=== PATIENT | male | born 1975 | race African-American/Black ===

== ENCOUNTER 2016-10-12 00:18 | Emergency (ER) | payer SELFPAY ==
[2016-10-12] MEDS ORDERED: Sodium Chloride 0.9% 1,000 ML IV ONE (00:41)
[2016-10-12] MEDS ORDERED: Sodium Chloride 0.9% 10 ML Syringe FLUSH PRN (00:41)
[2016-10-12] MEDS ORDERED: Sodium Chloride 0.9% 2.5 ML Syringe FLUSH PRN (00:41)
[2016-10-12] MEDS ORDERED: Ketorolac 30 MG/ML SDV IVPUSH ONE (00:42)
--- NOTE | 2016-10-12 00:50 | EDM.PDOC ---
ED HPI RENAL/ - General Chief Complaint: Flank Pain Stated Complaint: AMBULANCE Time Seen by Provider: 10/12/16 00:23 Source of Information: Reports: Patient History Limitations: Reports: No limitations - History of Present Illness INITIAL COMMENTS - FREE TEXT/NARRATIVE: HISTORY AND PHYSICAL: History of present illness: [41-year-old male with no prior history of kidney stones complaining of left flank pain today. Patient reports normal bowel and bladder habits. He denies abdominal pain. No fevers chills sweats or shaking chills. Patient denies cough or chest pain. He states the pain is intermittent and crampy in nature] Review of systems: As per history of present illness and below otherwise all systems reviewed and negative. Past medical history: As per history of present illness and as reviewed below otherwise noncontributory. Surgical history: As per history of present illness and as reviewed below otherwise noncontributory. Social history: No reported history of drug or alcohol abuse. Family history: As per history of present illness and as reviewed below otherwise noncontributory. Physical exam: HEENT: Atraumatic, normocephalic, pupils reactive, negative for conjunctival pallor or scleral icterus, mucous membranes moist, throat clear, neck supple, nontender, trachea midline. Lungs: Clear to auscultation, breath sounds equal bilaterally, chest nontender. Heart: S1S2, regular, negative for clicks, rubs, or JVD. Abdomen: Soft, nondistended, nontender. Negative for masses or hepatosplenomegaly. Negative for costovertebral tenderness. Pelvis: Stable nontender. Genitourinary: Deferred. Rectal: Deferred. Extremities: Atraumatic, negative for cords or calf pain. Neurovascular unremarkable. Neuro: Awake, alert, oriented. Cranial nerves II through XII unremarkable. Cerebellum unremarkable. Motor and sensory unremarkable throughout. Exam nonfocal. Diagnostics: [] Therapeutics: [] Impression: [] Plan: [A well-appearing patient complaining of left flank pain. Full workup negative except CT comments of possible infiltrate in the inferior left lung and patient' s white count is elevated at 14. X-ray done and was completely unremarkable for visible left lower lobe infiltrate however possibility of retrocardiac process exists and on discussion prior to discharge patient states he does have a cough over the last few days. Given results and white count discussed with patient will treat with Zithromax. No further workup or treatment indicated as patient is well-appearing with a benign abdomen and pelvis. He agrees with outpatient followup and strict return precautions given Definitive disposition and diagnosis as appropriate pending reevaluation and review of above. - Related Data Allergies/ADRs: Allergies Allergy/AdvReac Type Severity Reaction Status Date / Time No Known Allergies Allergy Verified 10/12/16 00:32 Home Meds: Home Meds Azithromycin [Zithromax] 250 mg PO DAILY #6 tablet 10/12/16 [Rx] Past Medical History HEENT History: Reports: None Cardiovascular History: Reports: None Respiratory History: Reports: None Gastrointestinal History: Reports: None Genitourinary History: Reports: None Musculoskeletal History: Reports: None Neurological History: Reports: None Psychiatric History: Reports: None Endocrine/Metabolic History: Reports: None Hematologic History: Reports: None Immunologic History: Reports: None Oncologic (Cancer) History: Reports: None Dermatologic History: Reports: None - Infectious Disease History Infectious Disease History: Reports: None - Past Surgical History Head Surgeries/Procedures: Reports: None Cardiovascular Surgical History: Reports: None Respiratory Surgical History: Reports: None GI Surgical History: Reports: None Male Surgical History: Reports: None Endocrine Surgical History: Reports: None Neurological Surgical History: Reports: None Musculoskeletal Surgical History: Reports: None Oncologic Surgical History: Reports: None Dermatological Surgical History: Reports: None Social & Family History - Family History Family Medical History: Noncontributory - Tobacco Use Smoking Status *Q: Current Some Day Smoker Years of Tobacco use: 2 Packs/Tins Daily: 0.5 - Caffeine Use Caffeine Use: Reports: Tea - Recreational Drug Use Recreational Drug Use: No ED ROS GENERAL - Review of Systems Review Of Systems: See Below (History of present illness) ED EXAM, RENAL/ - Physical Exam Exam: See Below (History of present illness) Course - Vital Signs Last Recorded V/S: Last Vital Signs Temp 37.2 C 10/12/16 03:00 Pulse 71 10/12/16 03:00 Resp 18 10/12/16 03:00 BP 128/79 10/12/16 03:00 Pulse Ox 99 10/12/16 03:00 - Orders/Labs/Meds Orders: Active Orders 24 hr Category Date Time Status Abdomen Pelvis w wo Cont [CT] Stat Exams 10/12/16 00:41 Taken Chest 1V Frontal [CR] Stat Exams 10/12/16 02:46 Taken Peripheral IV Insertion Adult [OM.PC] Stat Oth 10/12/16 00:41 Ordered Labs: Laboratory Tests 10/12/16 10/12/16 10/12/16 Range/Units 00:25 00:25 00:25 WBC 14.13 H (4.0-11.0) K/uL RBC 4.16 L (4.50-5.90) M/uL Hgb 13.4 (13.0-17.0) g/dL Hct 39.5 (38.0-50.0) % MCV 95.0 (80.0-98.0) fL MCH 32.2 H (27.0-32.0) pg MCHC 33.9 (31.0-37.0) g/dL RDW Std Deviation 45.6 (28.0-62.0) fl RDW Coeff of Ta 13 (11.0-15.0) % Plt Count 213 (150-400) K/uL MPV 9.70 (7.40-12.00) fL Neut % (Auto) 80.0 (48.0-80.0) % Lymph % (Auto) 9.1 L (16.0-40.0) % [place] % (Auto) 10.3 (0.0-15.0) % Eos % (Auto) 0.5 (0.0-7.0) % Baso % (Auto) 0.1 (0.0-1.5) % Neut # (Auto) 11.3 H (1.4-5.7) K/uL Lymph # (Auto) 1.3 (0.6-2.4) K/uL [place] # (Auto) 1.5 H (0.0-0.8) K/uL Eos # (Auto) 0.1 (0.0-0.7) K/uL Baso # (Auto) 0.0 (0.0-0.1) K/uL Nucleated RBC % 0.0 /100WBC Nucleated RBCs # 0 K/uL Sodium 135 L (136-146) mmol/L Potassium 4.3 (3.5-5.1) mmol/L Chloride 98 (98-110) mmol/L Carbon Dioxide 26 (21-31) mmol/L BUN 9 (6.0-23.0) mg/dL Creatinine 0.9 (0.6-1.5) mg/dL Est Cr Clr Drug Dosing 118.82 mL/min Estimated GFR (MDRD) > 60.0 ml/min Glucose 117 H (60-110) mg/dL Calcium 9.4 (8.8-10.8) mg/dL Total Bilirubin 0.9 (0.1-1.5) mg/dL AST 15 (5-40) IU/L ALT 17 (8-54) IU/L Alkaline Phosphatase 44 (40-150) Total Protein 8.4 H (6.0-8.0) g/dL Albumin 4.2 (3.5-5.0) g/dL Globulin 4.2 H (2.0-3.5) g/dL Albumin/Globulin Ratio 1.0 L (1.3-2.8) Lipase 41 (7-80) U/L Urine Color YELLOW Urine Appearance CLEAR Urine pH 6.0 (5.0-8.0) Ur Specific [place] 1.020 (1.001-1.035) Urine Protein NEGATIVE (NEGATIVE) mg/dL Urine Glucose (UA) NEGATIVE (NEGATIVE) mg/dL Urine Ketones NEGATIVE (NEGATIVE) mg/dL Urine Occult Blood NEGATIVE (NEGATIVE) Urine Nitrite NEGATIVE (NEGATIVE) Urine Bilirubin NEGATIVE (NEGATIVE) Urine Urobilinogen 1.0 (<2.0) EU/dL Ur Leukocyte Esterase NEGATIVE (NEGATIVE) Urine RBC 0-2 (0-2/HPF) Urine WBC 0-2 (0-5/HPF) Ur Epithelial Cells OCCASIONAL (NONE-FEW) Urine Bacteria RARE (NEGATIVE) Urine Mucus LIGHT (NONE-MOD) Meds: Medications Discontinued Medications Generic Name Dose Route Start Last Admin Trade Name Freq PRN Reason Stop Dose Admin Azithromycin 500 mg 10/12/16 03:18 10/12/16 03:27 Zithromax PO 10/12/16 03:19 500 mg ONETIME ONE Administration Sodium Chloride 1,000 mls @ 999 mls/hr 10/12/16 00:41 10/12/16 00:49 Normal Saline IV 10/12/16 01:41 999 mls/hr .Bolus ONE Administration Iopamidol 100 ml 10/12/16 01:37 10/12/16 01:39 Isovue-370 (76%) IVPUSH 10/12/16 01:38 100 ml ONETIME STA Administration Ketorolac Tromethamine 30 mg 10/12/16 00:42 10/12/16 00:49 Toradol IVPUSH 10/12/16 00:43 30 mg ONETIME ONE Administration Sodium Chloride 10 ml 10/12/16 00:41 Saline Flush FLUSH ASDIRECTED PRN Keep Vein Open Sodium Chloride 2.5 ml 10/12/16 00:41 Saline Flush FLUSH ASDIRECTED PRN Keep Vein Open Departure - Departure Time of Disposition: 03:15 Disposition: Home, Self-Care 01 Condition: good Clinical Impression: Left flank pain, Left lower lobe pneumonia Prescriptions: Azithromycin [Zithromax] 250 mg PO DAILY #6 tablet Instructions: Community-Acquired Pneumonia, Adult, [id number] Referrals: PCP,None [Primary Care Provider] - Forms: ED Department Discharge Additional Instructions: It appears severe left flank pain may have been caused by a left lower lobe pneumonia. This is not visible on her chest x-ray but it was visible to the radiologist on your CAT scan of the abdomen and pelvis. This means it is in the very lowest part of the lung. You have an elevated white blood cell count. This is often associated with infections in this case is likely a result of your pneumonia Finish antibiotics as prescribed and followup with your Dr. in one to 2 days. Return immediately for new severe or worsening symptoms. - My Orders Last 24 Hours: My Active Orders 10/12/16 00:41 Abdomen Pelvis w wo Cont [CT] Stat Peripheral IV Insertion Adult [OM.PC] Stat 10/12/16 02:46 Chest 1V Frontal [CR] Stat - Assessment/Plan Last 24 Hours: My Active Orders 10/12/16 00:41 Abdomen Pelvis w wo Cont [CT] Stat Peripheral IV Insertion Adult [OM.PC] Stat 10/12/16 02:46 Chest 1V Frontal [CR] Stat
[2016-10-12 01:00] LABS: CHLORIDE,CL 98 mmol/L (98-110); SODIUM,NA 135 mmol/L (136-146)
[2016-10-12] MEDS ORDERED: Iopamidol 755 Mg/ML 100 ML Bottle IVPUSH STA (01:37)
[2016-10-12] MEDS ORDERED: Azithromycin 250 MG Tab PO ONE (03:18)
[2016-10-12 03:36] VITALS: BP 128/79
--- NOTE | 2016-10-14 10:23 | CT ---
EXAM DATE: 10/12/16 PATIENT'S AGE: 41 Patient: MATTHEW KUMAR Facility: [place], [place] Site . Site : 1975 Study: CT Abdomen/Pelvis [id number]/8/2017 1:39:53 AM Ordering Physician: Len Rios Final Report: INDICATION: Left upper quadrant and flank pain TECHNIQUE: CT abdomen and pelvis without contrast. COMPARISON: None FINDINGS: Lower chest: Patchy airspace disease in the left lower lobe. Small left pleural effusion. Liver: Unremarkable. Spleen: Unremarkable. Pancreas: Unremarkable. Gallbladder and bile ducts: Unremarkable. Adrenal glands: Unremarkable. Kidneys: Unremarkable. No kidney or ureteral stones and no hydronephrosis. GI tract: Unremarkable. Vascular structures: Unremarkable. Lymph nodes: Unremarkable. Miscellaneous: Unremarkable. No free air or significant free fluid. Pelvic Organs: Unremarkable. Bones: Unremarkable for age. IMPRESSION: 1. No acute intra-abdominal process identified. No renal stones or hydronephrosis. 2. Airspace disease in left lower lobe likely represents pneumonia. Small left pleural effusion. Dictated by Pao Dickey MD @ Oct 12 2016 1:41AM (Electronic Signature) Report Signed by Proxy and Original Signed Document filed in the Medical Record. [facility]
--- NOTE | 2016-10-14 10:24 | CR ---
EXAM DATE: 10/12/16 PATIENT'S AGE: 41 Patient: MATTHEW KUMAR Facility: [place], [place] Site . Site : 1975 Study: XRay Chest [id number]/8/[id number] 3:00:33 AM Ordering Physician: Len Rios Final Report: INDICATION: Pain and shortness of breath TECHNIQUE: Chest one view COMPARISON: None FINDINGS: Cardiovascular and mediastinum: Heart size and vasculature are normal in caliber and appearance. Mediastinum is within normal limits. Lungs and pleural spaces: Lungs are clear. No sign of infiltrate or mass. No sign of pleural effusion. No pneumothorax. Bones and soft tissues: No significant findings. IMPRESSION: No sign of acute disease. Dictated by Pao Dickey MD @ Oct 12 2016 3:14AM (Electronic Signature) Report Signed by Proxy and Original Signed Document filed in the Medical Record. [facility]
== END 2016-10-12 03:35 | disposition home or self-care (01) ==
LOC: MW.ED 00:18
DX: J18.1 Lobar pneumonia, unspecified organism (principal); F17.210 Nicotine dependence, cigarettes, uncomplicated; Z79.899 Other long term (current) drug therapy
CPT/HCPCS: 71010; 74178; 80053; 81001; 83690; 85025; 96361; 96374; 99285; A9270; J1885; J7040; Q9967; 99284

== ENCOUNTER 2016-12-10 11:25 | Emergency (ER) | payer SELFPAY ==
--- NOTE | 2016-12-10 12:37 | CT ---
EXAMINATION: Non contrast CT head. Coronal and sagittal reformats. HISTORY: Seizure FINDINGS: No evidence of intra or extra axial hemorrhage, mass, midline shift, hydrocephalus or edema. No hypoattenuation changes in the major vascular territories to suggest acute infarct. No abnormal intracranial calcifications are detected. No evidence of substantial vascular calcifica tions. The mastoid air cells are clear. There is opacification of a few ethmoid air cells. Pituitary fossa appears unremarkable. Calvarium is intact. No evidence of skull fracture. IMPRESSION: No acute intracranial findings.
[2016-12-10 12:42] LABS: CHLORIDE,CL 96 mmol/L (98-110); SODIUM,NA 136 mmol/L (136-146)
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
[2016-12-10 13:57] VITALS: BP 152/92
== END 2016-12-10 13:54 | disposition home or self-care (01) ==
LOC: MW.ED 11:25
DX: G40.409 Other generalized epilepsy and epileptic syndromes, not intractable, without status epilepticus (principal); Z98.890 Other specified postprocedural states; F17.210 Nicotine dependence, cigarettes, uncomplicated
CPT/HCPCS: 36415; 70450; 80053; 80305; 85025; 99284; G0480; 99282

== ENCOUNTER 2017-02-05 16:27 | Emergency (ER) | payer SELFPAY ==
[2017-02-05] MEDS ORDERED: Sodium Chloride 0.9% 1,000 ML IV ONE (16:34)
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
[2017-02-05 17:08] LABS: CHLORIDE,CL 100 mmol/L (98-110); SODIUM,NA 139 mmol/L (136-146)
[2017-02-05 18:29] VITALS: BP 154/95
--- NOTE | 2017-02-06 10:46 | CT ---
EXAM DATE: 02/05/17 PATIENT'S AGE: 41 Patient: MATTHEW KUMAR Facility: [place], [place] Site . Site : 1975 Study: CT Head [id number]/2/2017 5:10:32 PM Ordering Physician: Doctor Finley Final Report: INDICATION: trauma TECHNIQUE: CT Head without contrast. COMPARISON: 12/10/2016 FINDINGS: There is no sign of intracranial hemorrhage or mass effect. Ventricles and sulci are symmetric and midline. The michelle-white differentiation is preserved. No abnormal intra-axial or extra-axial fluid collection. Retention cyst versus polyp within the imaged right maxillary sinus. No acute disease of the mastoid air cells. No fracture evident. No scalp hematoma/laceration. IMPRESSION: No acute intracranial process. Dictated by: Adithya Pyle MD @ 02/05/2017 17:28:20 (Electronic Signature) Report Signed by Proxy. [email or web address]
--- NOTE | 2017-02-06 10:47 | CT ---
EXAM DATE: 02/05/17 PATIENT'S AGE: 41 Patient: MATTHEW KUMAR Facility: [place], [place] Site . Site : 1975 Study: CT Spine Cervical [id number]/2/2017 5:11:09 PM Ordering Physician: Doctor Finley Final Report: INDICATION: trauma TECHNIQUE: CT cervical spine without contrast COMPARISON: None FINDINGS: Vertebral alignment: Relative straightening of the normal cervical spine lordosis which may be on the basis of positioning and/or muscle spasm. . Vertebrae: No fractures. Nonspecific sclerotic bone lesion right of midline within the C3 vertebral body. Discs and facet joints: Multilevel degenerative changes. Extraspinal findings: Prevertebral soft tissues, visualized airway, and visualized lungs are unremarkable aside from nonspecific noncalcified 4 mm pulmonary nodule within the right lung apex seen on series 301, image 209. Mild biapical pleural thickening. IMPRESSION: 1. Relative straightening of the normal cervical spine lordosis which may be on the basis of positioning and/or muscle spasm. No acute bony abnormality. 2. Nonspecific sclerotic bone lesion right of midline within the C3 vertebral body. 3. Nonspecific noncalcified 4 mm pulmonary nodule within the right lung apex. Recommend comparison with any prior cross-section imaging of the chest evaluate for stability/ chronicity and/or followup per Fleischner criteria. Dictated by Adithya Pyle MD @ 02/05/2017 6:07:03 PM Dictated by: Adithya Pyle MD @ 02/05/2017 18:07:32 (Electronic Signature) Report Signed by Proxy. [email or web address]
== END 2017-02-05 18:26 | disposition home or self-care (01) ==
LOC: MW.ED 16:27
DX: R29.818 Other symptoms and signs involving the nervous system (principal); F17.210 Nicotine dependence, cigarettes, uncomplicated
CPT/HCPCS: 36415; 70450; 72125; 80053; 80305; 85025; 96360; 99285; G0480; J7040; 99284

== ENCOUNTER 2017-02-05 22:29 | Emergency (ER) | payer SELFPAY ==
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
[2017-02-05] MEDS ORDERED: diphenhydrAMINE 50 MG/ML SDV IVPUSH ONE (23:28)
[2017-02-05] MEDS ORDERED: Sodium Chloride 0.9% 1,000 ML IV ONE (23:28)
[2017-02-05] MEDS ORDERED: Ketorolac 30 MG/ML SDV IVPUSH ONE (23:28)
[2017-02-05] MEDS ORDERED: Metoclopramide 10 MG/2 ML SDV IV ONE (23:28)
[2017-02-05] MEDS ORDERED: Dexamethasone 4 MG/ML SDV IVPUSH ONE (23:30)
[2017-02-05] MEDS ORDERED: LORazepam 2 MG/ML MDV IVPUSH ONE (23:37)
[2017-02-05] MEDS ORDERED: Dexamethasone 10 MG/ML SDV ONE (23:58)
[2017-02-06 01:54] LABS: CHLORIDE,CL 97 mmol/L (98-110); SODIUM,NA 138 mmol/L (136-146)
[2017-02-06 03:01] VITALS: BP 118/63
--- NOTE | 2017-02-06 10:58 | CT ---
EXAM DATE: 02/05/17 PATIENT'S AGE: 41 Patient: MATTHEW KUMAR Facility: [place], [place] Site . Site : 1975 Study: CT Head [id number] 1:20:18 AM Ordering Physician: Len Rios Final Report: INDICATION: Seizure, headache TECHNIQUE: CT head without contrast. COMPARISON: February 05, 2017 FINDINGS: CSF spaces: Within normal limits for age. Brain parenchyma: The michelle-white differentiation is normal. No sign of mass, hemorrhage, or midline shift. Skull base and calvarium: The visualized paranasal sinuses and mastoid air cells demonstrate no acute or significant findings. The visualized orbits are grossly unremarkable. No skull fractures. IMPRESSION: Unremarkable noncontrast head CT. Please note that all CT scans at this facility use dose modulation, iterative reconstruction, and/or weight-based dosing when appropriate to reduce radiation dose to as low as reasonably achievable. Dictated by Pao Diceky MD @ Feb 06 2017 1:44AM (Electronic Signature) Report Signed by Proxy. [facility]US[facility]ali
== END 2017-02-06 02:50 | disposition home or self-care (01) ==
LOC: MW.ED 22:29
DX: R51 Headache (principal); R25.1 Tremor, unspecified; F17.210 Nicotine dependence, cigarettes, uncomplicated
CPT/HCPCS: 36415; 80048; 85025; 96361; 96374; 96375; 99284; J1100; J1200; J1885; J2060; J2765; J7040; 70450; 70450-26

== ENCOUNTER 2017-04-30 13:40 | Emergency (ER) | payer SELFPAY ==
[2017-04-30] MEDS ORDERED: levETIRAcetam Soln 500 MG/5 ML Cup PO ONE (14:11)
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
[2017-04-30 14:53] VITALS: BP 149/98
== END 2017-04-30 14:51 | disposition home or self-care (01) ==
LOC: MW.ED 13:40
DX: G40.409 Other generalized epilepsy and epileptic syndromes, not intractable, without status epilepticus (principal)
CPT/HCPCS: 82962; 99283; A9270

== ENCOUNTER 2017-08-19 16:17 | Emergency (ER) | payer SELFPAY ==
[2017-08-19 16:52] VITALS: BP 148/99
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
== END 2017-08-19 17:11 ==
LOC: MW.ED 16:17
DX: Z02.89 Encounter for other administrative examinations (principal); G40.909 Epilepsy, unspecified, not intractable, without status epilepticus; F17.210 Nicotine dependence, cigarettes, uncomplicated
CPT/HCPCS: 99282; 99283

== ENCOUNTER 2018-01-15 14:23 | Inpatient (IN) | payer SELFPAY ==
[2018-01-15] MEDS ORDERED: Ondansetron 4 MG/2 ML SDV IVPUSH ONE (14:25)
[2018-01-15] MEDS ORDERED: Sodium Chloride 0.9% 1,000 ML IV ONE ×2 (14:25)
[2018-01-15] MEDS ORDERED: LORazepam 2 MG/ML SDV IVPUSH ONE (14:33)
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
--- NOTE | 2018-01-15 15:27 | CR ---
EXAMINATION: Two-view chest (PA and Lateral views). HISTORY: Seizure like activity.. FINDINGS: The trachea is midline. The cardiomediastinal silhouette is within normal limits. Infiltrate noted wi thin the region of the right upper lobe. No pleural effusion or pneumothorax. No pleural effusion or pneumothorax. Osseous structures appear unremarkable. Old left rib fracture. IMPRESSION: Right upper lobe opacity, possibly representing pneumonia and/or atelectasis.
[2018-01-15 15:37] LABS: CHLORIDE,CL 94 mmol/L (98-107); SODIUM,NA 150 mmol/L (136-148)
[2018-01-15] MEDS ORDERED: MVI, Adult with Vitamin K 10 ML, Thiamine 100 MG, Folic Acid 1 MG in Sodium Chloride 0.... IV ONE ×4 (15:39)
[2018-01-15] MEDS ORDERED: Aspirin 81 MG Tab.Chew PO ONE (15:39)
[2018-01-15] MEDS ORDERED: cefTRIAXone 1 GM in Premix Bag 1 BAG IV ONE (16:56)
[2018-01-15] MEDS ORDERED: LORazepam 2 MG/ML SDV IVPUSH PRN (17:38)
[2018-01-15] MEDS ORDERED: Ondansetron 4 MG/2 ML SDV IVPUSH PRN (17:46)
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
[2018-01-15] MEDS: Sodium Chloride 0.45% 1,000 ML IV SCH (18:06)
[2018-01-15] MEDS: Azithromycin 500 MG in Sodium Chloride 0.9% 250 ML IV SCH (18:07)
[2018-01-15] MEDS: Heparin Sodium 5,000 Units/ML Vial SUBCUT SCH (18:11)
[2018-01-15] MEDS: levETIRAcetam 500 MG Tab PO SCH (20:07)
[2018-01-15] MEDS: Pantoprazole 40 MG Tab.CR PO SCH (22:18)
[2018-01-16] MEDS: Heparin Sodium 5,000 Units/ML Vial SUBCUT SCH ×3 (01:05→18:28)
[2018-01-16] MEDS: Sodium Chloride 0.45% 1,000 ML IV SCH (01:05)
[2018-01-16] MEDS: Thiamine 100 MG Tab PO SCH (08:56)
[2018-01-16] MEDS: levETIRAcetam 500 MG Tab PO SCH ×2 (08:56→20:36)
[2018-01-16] MEDS: Pantoprazole 40 MG Tab.CR PO SCH (08:56)
[2018-01-16] MEDS: Folic Acid 1 MG Tab PO SCH (08:56)
--- NOTE | 2018-01-16 12:14 | PCM.PN ---
- General Info Date of Service: 01/16/18 - Review of Systems Systems Review Comment:: no nausea, cough, or chest pain - Patient Data Vitals - Most Recent: Last Vital Signs Temp 36.9 C 01/16/18 08:00 Pulse 93 01/15/18 17:07 Resp 15 01/16/18 11:00 BP 118/70 01/16/18 11:00 Pulse Ox 93 L 01/16/18 11:00 Weight - Most Recent: 59.4 kg I&O - Last 24 Hours: Intake & Output 01/15/18 01/16/18 01/16/18 22:59 06:59 14:59 Intake Total 4362 2500 1780 Output Total 700 Balance 4362 1800 1780 Lab Results Last 24 Hours: Laboratory Results - last 24 hr 01/15/18 01/15/18 01/15/18 Range/Units 14:20 14:20 14:20 WBC 16.11 H (4.0-11.0) K/uL RBC 5.09 (4.50-5.90) M/uL Hgb 17.4 H (13.0-17.0) g/dL Hct 52.8 H (38.0-50.0) % MCV 103.7 H (80.0-98.0) fL MCH 34.2 H (27.0-32.0) pg MCHC 33.0 (31.0-37.0) g/dL RDW Std Deviation 55.6 (28.0-62.0) fl RDW Coeff of Ta 15 (11.0-15.0) % Plt Count 264 (150-400) K/uL MPV 10.10 (7.40-12.00) fL Neut % (Auto) 82.2 H (48.0-80.0) % Lymph % (Auto) 7.0 L (16.0-40.0) % Dane % (Auto) 10.6 (0.0-15.0) % Eos % (Auto) 0.0 (0.0-7.0) % Baso % (Auto) 0.2 (0.0-1.5) % Neut # (Auto) 13.2 H (1.4-5.7) K/uL Lymph # (Auto) 1.1 (0.6-2.4) K/uL Dane # (Auto) 1.7 H (0.0-0.8) K/uL Eos # (Auto) 0.0 (0.0-0.7) K/uL Baso # (Auto) 0.0 (0.0-0.1) K/uL Nucleated RBC % 0.0 /100WBC Nucleated RBCs # 0 K/uL Sodium 150 H (136-148) mmol/L Potassium 3.7 (3.5-5.1) mmol/L Chloride 94 L (98-107) mmol/L Carbon Dioxide 18.6 L (21.0-32.0) mmol/L BUN 16 (7.0-18.0) mg/dL Creatinine 2.5 H (0.8-1.3) mg/dL Est Cr Clr Drug Dosing TNP Estimated GFR (MDRD) 34.2 ml/min Glucose 243 H (74-106) mg/dL Calcium 10.0 (8.5-10.1) mg/dL Phosphorus (2.6-4.7) mg/dL Magnesium (1.8-2.4) mg/dL Total Bilirubin 0.8 (0.2-1.0) mg/dL AST 74 H (15-37) IU/L ALT 59 (14-63) IU/L Alkaline Phosphatase 80 (46-116) U/L Troponin I 0.077 H* (0.000-0.056) ng/mL Total Protein 11.0 H (6.4-8.2) g/dL Albumin 4.9 (3.4-5.0) g/dL Globulin 6.1 H (2.0-3.5) g/dL Albumin/Globulin Ratio 0.8 L (1.3-2.8) Lipase (73-393) U/L Urine Color Urine Appearance Urine pH (5.0-8.0) Ur Specific [place] (1.001-1.035) Urine Protein (NEGATIVE) mg/dL Urine Glucose (UA) (NEGATIVE) mg/dL Urine Ketones (NEGATIVE) mg/dL Urine Occult Blood (NEGATIVE) Urine Nitrite (NEGATIVE) Urine Bilirubin (NEGATIVE) Urine Ictotest Urine Urobilinogen (<2.0) EU/dL Ur Leukocyte Esterase (NEGATIVE) Urine RBC (0-2/HPF) Urine WBC (0-5/HPF) Ur Epithelial Cells (NONE-FEW) Amorphous Sediment (NEGATIVE) Urine Bacteria (NEGATIVE) Hyaline Casts (0-2/LPF) Urine Mucus (NONE-MOD) Urine Opiates Screen (NEGATIVE) Ur Oxycodone Screen (NEGATIVE) Urine Methadone Screen (NEGATIVE) Ur Barbiturates Screen (NEGATIVE) Ur Phencyclidine Scrn (NEGATIVE) Ur Amphetamine Screen (NEGATIVE) U Methamphetamines Scrn (NEGATIVE) U Benzodiazepines Scrn (NEGATIVE) U Cocaine Metab Screen (NEGATIVE) U Marijuana (THC) Screen (NEGATIVE) Ethyl Alcohol < 3.0 mg/dL 01/15/18 01/15/18 01/15/18 Range/Units 14:20 14:20 15:01 WBC (4.0-11.0) K/uL RBC (4.50-5.90) M/uL Hgb (13.0-17.0) g/dL Hct (38.0-50.0) % MCV (80.0-98.0) fL MCH (27.0-32.0) pg MCHC (31.0-37.0) g/dL RDW Std Deviation (28.0-62.0) fl RDW Coeff of Ta (11.0-15.0) % Plt Count (150-400) K/uL MPV (7.40-12.00) fL Neut % (Auto) (48.0-80.0) % Lymph % (Auto) (16.0-40.0) % Dane % (Auto) (0.0-15.0) % Eos % (Auto) (0.0-7.0) % Baso % (Auto) (0.0-1.5) % Neut # (Auto) (1.4-5.7) K/uL Lymph # (Auto) (0.6-2.4) K/uL Dane # (Auto) (0.0-0.8) K/uL Eos # (Auto) (0.0-0.7) K/uL Baso # (Auto) (0.0-0.1) K/uL Nucleated RBC % /100WBC Nucleated RBCs # K/uL Sodium (136-148) mmol/L Potassium (3.5-5.1) mmol/L Chloride (98-107) mmol/L Carbon Dioxide (21.0-32.0) mmol/L BUN (7.0-18.0) mg/dL Creatinine (0.8-1.3) mg/dL Est Cr Clr Drug Dosing Estimated GFR (MDRD) ml/min Glucose (74-106) mg/dL Calcium (8.5-10.1) mg/dL Phosphorus (2.6-4.7) mg/dL Magnesium 1.9 (1.8-2.4) mg/dL Total Bilirubin (0.2-1.0) mg/dL AST (15-37) IU/L ALT (14-63) IU/L Alkaline Phosphatase (46-116) U/L Troponin I (0.000-0.056) ng/mL Total Protein (6.4-8.2) g/dL Albumin (3.4-5.0) g/dL Globulin (2.0-3.5) g/dL Albumin/Globulin Ratio (1.3-2.8) Lipase 129 (73-393) U/L Urine Color DARK YELLOW Urine Appearance CLOUDY Urine pH 5.5 (5.0-8.0) Ur Specific Mills >= 1.030 (1.001-1.035) Urine Protein >=300 (NEGATIVE) mg/dL Urine Glucose (UA) NEGATIVE (NEGATIVE) mg/dL Urine Ketones TRACE H (NEGATIVE) mg/dL Urine Occult Blood MODERATE (NEGATIVE) Urine Nitrite NEGATIVE (NEGATIVE) Urine Bilirubin SMALL H (NEGATIVE) Urine Ictotest NEGATIVE Urine Urobilinogen 0.2 (<2.0) EU/dL Ur Leukocyte Esterase NEGATIVE (NEGATIVE) Urine RBC 0-1 (0-2/HPF) Urine WBC 0-1 (0-5/HPF) Ur Epithelial Cells FEW (NONE-FEW) Amorphous Sediment MANY (NEGATIVE) Urine Bacteria FEW (NEGATIVE) Hyaline Casts MODERATE (0-2/LPF) Urine Mucus FEW (NONE-MOD) Urine Opiates Screen (NEGATIVE) Ur Oxycodone Screen (NEGATIVE) Urine Methadone Screen (NEGATIVE) Ur Barbiturates Screen (NEGATIVE) Ur Phencyclidine Scrn (NEGATIVE) Ur Amphetamine Screen (NEGATIVE) U Methamphetamines Scrn (NEGATIVE) U Benzodiazepines Scrn (NEGATIVE) U Cocaine Metab Screen (NEGATIVE) U Marijuana (THC) Screen (NEGATIVE) Ethyl Alcohol mg/dL 07/12/18 07/12/18 07/13/18 Range/Units 15:01 19:53 02:12 WBC (4.0-11.0) K/uL RBC (4.50-5.90) M/uL Hgb (13.0-17.0) g/dL Hct (38.0-50.0) % MCV (80.0-98.0) fL MCH (27.0-32.0) pg MCHC (31.0-37.0) g/dL RDW Std Deviation (28.0-62.0) fl RDW Coeff of Ta (11.0-15.0) % Plt Count (150-400) K/uL MPV (7.40-12.00) fL Neut % (Auto) (48.0-80.0) % Lymph % (Auto) (16.0-40.0) % Dane % (Auto) (0.0-15.0) % Eos % (Auto) (0.0-7.0) % Baso % (Auto) (0.0-1.5) % Neut # (Auto) (1.4-5.7) K/uL Lymph # (Auto) (0.6-2.4) K/uL Dane # (Auto) (0.0-0.8) K/uL Eos # (Auto) (0.0-0.7) K/uL Baso # (Auto) (0.0-0.1) K/uL Nucleated RBC % /100WBC Nucleated RBCs # K/uL Sodium 144 135 L (136-148) mmol/L Potassium 3.4 L (3.5-5.1) mmol/L Chloride 102 (98-107) mmol/L Carbon Dioxide 29.5 (21.0-32.0) mmol/L BUN 7 (7.0-18.0) mg/dL Creatinine 1.6 H (0.8-1.3) mg/dL Est Cr Clr Drug Dosing 49.50 Estimated GFR (MDRD) 57.2 ml/min Glucose 95 (74-106) mg/dL Calcium 7.6 L (8.5-10.1) mg/dL Phosphorus (2.6-4.7) mg/dL Magnesium (1.8-2.4) mg/dL Total Bilirubin (0.2-1.0) mg/dL AST (15-37) IU/L ALT (14-63) IU/L Alkaline Phosphatase (46-116) U/L Troponin I 0.187 H* 0.134 H* (0.000-0.056) ng/mL Total Protein (6.4-8.2) g/dL Albumin (3.4-5.0) g/dL Globulin (2.0-3.5) g/dL Albumin/Globulin Ratio (1.3-2.8) Lipase (73-393) U/L Urine Color Urine Appearance Urine pH (5.0-8.0) Ur Specific Mills (1.001-1.035) Urine Protein (NEGATIVE) mg/dL Urine Glucose (UA) (NEGATIVE) mg/dL Urine Ketones (NEGATIVE) mg/dL Urine Occult Blood (NEGATIVE) Urine Nitrite (NEGATIVE) Urine Bilirubin (NEGATIVE) Urine Ictotest Urine Urobilinogen (<2.0) EU/dL Ur Leukocyte Esterase (NEGATIVE) Urine RBC (0-2/HPF) Urine WBC (0-5/HPF) Ur Epithelial Cells (NONE-FEW) Amorphous Sediment (NEGATIVE) Urine Bacteria (NEGATIVE) Hyaline Casts (0-2/LPF) Urine Mucus (NONE-MOD) Urine Opiates Screen NEGATIVE (NEGATIVE) Ur Oxycodone Screen NEGATIVE (NEGATIVE) Urine Methadone Screen NEGATIVE (NEGATIVE) Ur Barbiturates Screen NEGATIVE (NEGATIVE) Ur Phencyclidine Scrn NEGATIVE (NEGATIVE) Ur Amphetamine Screen NEGATIVE (NEGATIVE) U Methamphetamines Scrn NEGATIVE (NEGATIVE) U Benzodiazepines Scrn NEGATIVE (NEGATIVE) U Cocaine Metab Screen NEGATIVE (NEGATIVE) U Marijuana (THC) Screen POSITIVE (NEGATIVE) Ethyl Alcohol mg/dL 01/16/18 01/16/18 01/16/18 Range/Units 02:12 02:12 10:05 WBC 13.89 H (4.0-11.0) K/uL RBC 3.72 L (4.50-5.90) M/uL Hgb 12.4 L (13.0-17.0) g/dL Hct 36.1 L (38.0-50.0) % MCV 97.0 (80.0-98.0) fL MCH 33.3 H (27.0-32.0) pg MCHC 34.3 (31.0-37.0) g/dL RDW Std Deviation 47.1 (28.0-62.0) fl RDW Coeff of Ta 14 (11.0-15.0) % Plt Count 196 (150-400) K/uL MPV 9.00 (7.40-12.00) fL Neut % (Auto) 80.2 H (48.0-80.0) % Lymph % (Auto) 12.6 L (16.0-40.0) % Dane % (Auto) 7.0 (0.0-15.0) % Eos % (Auto) 0.0 (0.0-7.0) % Baso % (Auto) 0.2 (0.0-1.5) % Neut # (Auto) 11.1 H (1.4-5.7) K/uL Lymph # (Auto) 1.8 (0.6-2.4) K/uL Dane # (Auto) 1.0 H (0.0-0.8) K/uL Eos # (Auto) 0.0 (0.0-0.7) K/uL Baso # (Auto) 0.0 (0.0-0.1) K/uL Nucleated RBC % /100WBC Nucleated RBCs # K/uL Sodium 136 137 (136-148) mmol/L Potassium 3.2 L (3.5-5.1) mmol/L Chloride 97 L (98-107) mmol/L Carbon Dioxide 31.7 (21.0-32.0) mmol/L BUN 12 (7.0-18.0) mg/dL Creatinine 1.6 H (0.8-1.3) mg/dL Est Cr Clr Drug Dosing 49.50 Estimated GFR (MDRD) 57.2 ml/min Glucose 100 (74-106) mg/dL Calcium 7.4 L (8.5-10.1) mg/dL Phosphorus 2.5 L (2.6-4.7) mg/dL Magnesium 1.9 (1.8-2.4) mg/dL Total Bilirubin (0.2-1.0) mg/dL AST (15-37) IU/L ALT (14-63) IU/L Alkaline Phosphatase (46-116) U/L Troponin I (0.000-0.056) ng/mL Total Protein (6.4-8.2) g/dL Albumin (3.4-5.0) g/dL Globulin (2.0-3.5) g/dL Albumin/Globulin Ratio (1.3-2.8) Lipase (73-393) U/L Urine Color Urine Appearance Urine pH (5.0-8.0) Ur Specific [place] (1.001-1.035) Urine Protein (NEGATIVE) mg/dL Urine Glucose (UA) (NEGATIVE) mg/dL Urine Ketones (NEGATIVE) mg/dL Urine Occult Blood (NEGATIVE) Urine Nitrite (NEGATIVE) Urine Bilirubin (NEGATIVE) Urine Ictotest Urine Urobilinogen (<2.0) EU/dL Ur Leukocyte Esterase (NEGATIVE) Urine RBC (0-2/HPF) Urine WBC (0-5/HPF) Ur Epithelial Cells (NONE-FEW) Amorphous Sediment (NEGATIVE) Urine Bacteria (NEGATIVE) Hyaline Casts (0-2/LPF) Urine Mucus (NONE-MOD) Urine Opiates Screen (NEGATIVE) Ur Oxycodone Screen (NEGATIVE) Urine Methadone Screen (NEGATIVE) Ur Barbiturates Screen (NEGATIVE) Ur Phencyclidine Scrn (NEGATIVE) Ur Amphetamine Screen (NEGATIVE) U Methamphetamines Scrn (NEGATIVE) U Benzodiazepines Scrn (NEGATIVE) U Cocaine Metab Screen (NEGATIVE) U Marijuana (THC) Screen (NEGATIVE) Ethyl Alcohol mg/dL Med Orders - Current: Current Medications Folic Acid (Folic Acid) 1 mg PO DAILY [facility] Last Admin: 01/16/18 08:56 Dose: 1 mg Heparin Sodium (Porcine) (Heparin Sodium) 5,000 units SUBCUT Q8H [facility] Last Admin: 01/16/18 09:05 Dose: 5,000 units Azithromycin 500 mg/ Sodium (Chloride) 250 mls @ 250 mls/hr IV Q24H [facility] Last Admin: 01/15/18 18:07 Dose: 250 mls/hr Ceftriaxone Sodium/Dextrose 1 (gm/ Premix) 50 mls @ 200 mls/hr IV Q24H [facility] Levetiracetam (Keppra) 500 mg PO BID [facility] Last Admin: 01/16/18 08:56 Dose: 500 mg Lorazepam (Ativan) 0 mg IVPUSH Q4H PRN; Protocol PRN Reason: Agitation Last Admin: 01/15/18 21:02 Dose: 1 mg Ondansetron HCl (Zofran) 4 mg IVPUSH Q4H PRN PRN Reason: Nausea Last Admin: 01/15/18 21:01 Dose: 4 mg Pantoprazole Sodium (Protonix) 40 mg PO DAILY [facility] Last Admin: 01/16/18 08:56 Dose: 40 mg Thiamine HCl (Vitamin B-1) 100 mg PO DAILY [facility] Last Admin: 01/16/18 08:56 Dose: 100 mg Discontinued Medications Aspirin (Aspirin) 324 mg PO ONETIME ONE Stop: 01/15/18 15:40 Last Admin: 01/15/18 15:52 Dose: 324 mg Sodium Chloride (Normal Saline) 1,000 mls @ 999 mls/hr IV .Bolus ONE Stop: 01/15/18 15:25 Last Admin: 01/15/18 14:39 Dose: 999 mls/hr Sodium Chloride (Normal Saline) 1,000 mls @ 999 mls/hr IV STAT ONE Stop: 01/15/18 15:25 Last Admin: 01/15/18 15:14 Dose: 999 mls/hr Multivitamins/Minerals 10 ml/Thiamine HCl 100 mg/ Folic Acid 1 mg/ Sodium Chloride 1,011.2 mls @ 500 mls/hr IV ONETIME ONE Stop: 01/15/18 17:40 Last Admin: 01/15/18 16:13 Dose: 500 mls/hr Ceftriaxone Sodium/Dextrose 1 (gm/ Premix) 50 mls @ 100 mls/hr IV ONETIME ONE Stop: 01/15/18 17:25 Last Admin: 01/15/18 17:21 Dose: 100 mls/hr Sodium Chloride (Sodium Chloride 0.45%) 1,000 mls @ 125 mls/hr IV ASDIRECTED [facility] Last Admin: 01/16/18 01:05 Dose: 125 mls/hr Lorazepam (Ativan) 1 mg IVPUSH ONETIME ONE Stop: 01/15/18 14:34 Last Admin: 01/15/18 17:24 Dose: Not Given Ondansetron HCl (Zofran) 4 mg IVPUSH ONETIME ONE Stop: 01/15/18 14:26 Last Admin: 01/15/18 14:38 Dose: 4 mg - Exam General: Alert, Oriented Neck: Supple Lungs: Clear to Auscultation, Normal Respiratory Effort Cardiovascular: Regular Rate, Regular Rhythm GI/Abdominal Exam: Soft, Non-Tender, No Organomegaly Back Exam: Other Extremities: No Pedal Edema - Problem List Review Problem List Initiated/Reviewed/Updated: Yes - My Orders Last 24 Hours: My Active Orders 01/15/18 17:38 LORazepam [Ativan] See Protocol IVPUSH Q4H PRN 01/15/18 17:42 CULTURE SPUTUM + SMEAR [RM] Routine 01/15/18 17:46 Intake and Output [RC] Q12H Oxygen Therapy [RC] PRN Vital Signs [RC] Q1H Ondansetron [Zofran] 4 mg IVPUSH Q4H PRN Sequential Compression Device [OM.PC] Per Unit Routine Resuscitation Status Routine 01/15/18 18:00 Azithromycin [Zithromax] 500 mg Sodium Chloride 0.9% [Normal Saline] 250 ml IV Q24H Heparin Sodium 5,000 units SUBCUT Q8H 01/15/18 21:00 levETIRAcetam [Keppra] 500 mg PO BID 01/16/18 09:00 Folic Acid 1 mg PO DAILY Thiamine [Vitamin B-1] 100 mg PO DAILY 01/16/18 14:00 cefTRIAXone [Rocephin in Dextrose,Iso-Osm 1 GM/50 ML] 1 gm Premix Bag 1 bag IV Q24H 01/17/18 05:11 BASIC METABOLIC PANEL,BMP [CHEM] AM CBC WITH AUTO DIFF [HEME] AM MAGNESIUM [CHEM] AM PHOSPHORUS [CHEM] AM - Plan Plan:: 42 yo male with pmh of ETOH abuse admitted for seizure following a day of nausea and vomiting. Dehydration/hypernatremia/acute kidney injury: creatinine has impove Seizure: ETOH withdrawal vs siezure disorder, on keppra continue CIWA protocol with ativan, thiamin and folic acid Pneumonia: patient has leukocytosis and CXR suggestive of possible pneumonia, treating with Rocephin, azithromycin, cultures ordered Mildly elevated troponin: troponin stable, Dr. Thornton was consulted in the ED.
[2018-01-16] MEDS ORDERED: Potassium Chloride 20 MEQ Tab.ER PO ONE (13:09)
[2018-01-16] MEDS ORDERED: cefTRIAXone 1 GM in Premix Bag 1 BAG IV SCH (14:00)
[2018-01-16] MEDS: Azithromycin 500 MG in Sodium Chloride 0.9% 250 ML IV SCH (18:29)
[2018-01-17] MEDS: Heparin Sodium 5,000 Units/ML Vial SUBCUT SCH ×2 (01:00→10:45)
[2018-01-17 06:09] LABS: CHLORIDE,CL 101 mmol/L (98-107); SODIUM,NA 136 mmol/L (136-148)
[2018-01-17] MEDS ORDERED: Potassium Chloride 20 MEQ Tab.ER PO ONE (09:25)
[2018-01-17] MEDS ORDERED: Magnesium Sulfate/Water 2 GM in Premix Bag 1 BAG IV ONE (09:25)
--- NOTE | 2018-01-17 09:58 | PCM.DCSUM1 ---
Discharge Summary - Discharge Data Discharge Date: 01/17/18 Discharge Disposition: Home, Self-Care 01 Condition: Good - Patient Summary/Data Hospital Course: 42 yo male who was admitted for seizure, alcohol withdrawal, acute kidney injury , pneumonia and elevated troponin. He has a history of alcohol abuse and possible seizure disorder. Patient complained of not eating or drinking anything for a day prior to admission due to nausea and vomiting. He reports having fight with his . His called the internal recruiter and due to outstanding warrants the police were going to take him to custody but patient requested medical evaluation. During EMS transport the patient did have a seizure. He was post ictal on arrival to ED but quickly became alert. He was noted to have an WBC of 16,110, Creatinine of 2.5 and Troponin of 0.077. Chest x-ray reported an infiltrate of right upper lobe. Patient was treated for possible pneumonia/aspiration with Rocephin and azithromycin. He was hydrated with IV fluids and placed on CIWA protocol with prn ativan, thiamin and folic acid. His leukocytosis and creatinine normalized. His CIWA scores have been stable and today he is requesting discharge home. He did have an echocardiogram done but report is still pending. His troponins were trended and remained at low levels. He denied having chest pain and had no events on telemetry. He was discharged home to have follow up with is PCP and Dr. Thornton. - Patient Instructions Diet: Usual Diet as Tolerated - Discharge Plan Prescriptions/Med Rec: Azithromycin [Zithromax] 250 mg PO DAILY #3 tab Home Medications: Home Meds levETIRAcetam [Keppra] 500 mg PO BID #60 tablet 04/30/17 [Rx] Azithromycin [Zithromax] 250 mg PO DAILY #3 tab 01/17/18 [Rx] Forms: ED Department Discharge Referrals: PCP,None [Primary Care Provider] - - Patient Data Vitals - Most Recent: Last Vital Signs Temp 36.1 C 01/17/18 04:00 Pulse 93 01/15/18 17:07 Resp 16 01/17/18 06:00 BP 135/80 01/17/18 06:00 Pulse Ox 97 01/17/18 06:00 Weight - Most Recent: 59.4 kg I&O - Last 24 hours: Intake & Output 01/16/18 01/17/18 01/17/18 22:59 06:59 14:59 Intake Total 2190 1000 Output Total 760 500 Balance 1430 500 Lab Results - Last 24 hrs: Laboratory Results - last 24 hr 01/16/18 01/16/18 01/16/18 Range/Units 10:05 16:02 21:57 WBC (4.0-11.0) K/uL RBC (4.50-5.90) M/uL Hgb (13.0-17.0) g/dL Hct (38.0-50.0) % MCV (80.0-98.0) fL MCH (27.0-32.0) pg MCHC (31.0-37.0) g/dL RDW Std Deviation (28.0-62.0) fl RDW Coeff of Ta (11.0-15.0) % Plt Count (150-400) K/uL MPV (7.40-12.00) fL Neut % (Auto) (48.0-80.0) % Lymph % (Auto) (16.0-40.0) % Charles % (Auto) (0.0-15.0) % Eos % (Auto) (0.0-7.0) % Baso % (Auto) (0.0-1.5) % Neut # (Auto) (1.4-5.7) K/uL Lymph # (Auto) (0.6-2.4) K/uL Charles # (Auto) (0.0-0.8) K/uL Eos # (Auto) (0.0-0.7) K/uL Baso # (Auto) (0.0-0.1) K/uL Nucleated RBC % /100WBC Nucleated RBCs # K/uL Sodium 137 136 135 L (136-148) mmol/L Potassium (3.5-5.1) mmol/L Chloride (98-107) mmol/L Carbon Dioxide (21.0-32.0) mmol/L BUN (7.0-18.0) mg/dL Creatinine (0.8-1.3) mg/dL Est Cr Clr Drug Dosing mL/min Estimated GFR (MDRD) ml/min Glucose (74-106) mg/dL Calcium (8.5-10.1) mg/dL Phosphorus (2.6-4.7) mg/dL Magnesium (1.8-2.4) mg/dL 01/17/18 01/17/18 Range/Units 05:45 05:45 WBC 7.43 (4.0-11.0) K/uL RBC 3.79 L (4.50-5.90) M/uL Hgb 12.4 L (13.0-17.0) g/dL Hct 36.2 L (38.0-50.0) % MCV 95.5 (80.0-98.0) fL MCH 32.7 H (27.0-32.0) pg MCHC 34.3 (31.0-37.0) g/dL RDW Std Deviation 47.2 (28.0-62.0) fl RDW Coeff of Ta 14 (11.0-15.0) % Plt Count 173 (150-400) K/uL MPV 9.30 (7.40-12.00) fL Neut % (Auto) 62.5 (48.0-80.0) % Lymph % (Auto) 29.1 (16.0-40.0) % Charles % (Auto) 7.1 (0.0-15.0) % Eos % (Auto) 0.9 (0.0-7.0) % Baso % (Auto) 0.4 (0.0-1.5) % Neut # (Auto) 4.6 (1.4-5.7) K/uL Lymph # (Auto) 2.2 (0.6-2.4) K/uL Charles # (Auto) 0.5 (0.0-0.8) K/uL Eos # (Auto) 0.1 (0.0-0.7) K/uL Baso # (Auto) 0.0 (0.0-0.1) K/uL Nucleated RBC % 0.0 /100WBC Nucleated RBCs # 0 K/uL Sodium 136 (136-148) mmol/L Potassium 3.6 (3.5-5.1) mmol/L Chloride 101 (98-107) mmol/L Carbon Dioxide 29.5 (21.0-32.0) mmol/L BUN 5 L (7.0-18.0) mg/dL Creatinine 1.1 (0.8-1.3) mg/dL Est Cr Clr Drug Dosing 72.00 mL/min Estimated GFR (MDRD) > 60.0 ml/min Glucose 88 (74-106) mg/dL Calcium 7.6 L (8.5-10.1) mg/dL Phosphorus 1.9 L (2.6-4.7) mg/dL Magnesium 1.7 L (1.8-2.4) mg/dL JAY Results - Last 24 hrs: Microbiology 01/15/18 17:09 Aerobic Blood Culture - Preliminary Blood - Venous NO GROWTH AFTER 1 DAY Anaerobic Blood Culture - Preliminary NO GROWTH AFTER 1 DAY 01/15/18 17:19 Aerobic Blood Culture - Preliminary Blood - Venous - Lab Draw NO GROWTH AFTER 1 DAY Anaerobic Blood Culture - Preliminary NO GROWTH AFTER 1 DAY Med Orders - Current: Current Medications Folic Acid (Folic Acid) 1 mg PO DAILY [facility] Last Admin: 01/16/18 08:56 Dose: 1 mg Heparin Sodium (Porcine) (Heparin Sodium) 5,000 units SUBCUT Q8H [facility] Last Admin: 01/17/18 01:00 Dose: 5,000 units Azithromycin 500 mg/ Sodium (Chloride) 250 mls @ 250 mls/hr IV Q24H [facility] Last Admin: 01/16/18 18:29 Dose: 250 mls/hr Ceftriaxone Sodium/Dextrose 1 (gm/ Premix) 50 mls @ 200 mls/hr IV Q24H [facility] Last Admin: 01/16/18 14:07 Dose: 200 mls/hr Magnesium Sulfate 2 gm/ Premix 50 mls @ 50 mls/hr IV ONETIME ONE Stop: 01/17/18 10:24 Levetiracetam (Keppra) 500 mg PO BID [facility] Last Admin: 01/16/18 20:36 Dose: 500 mg Lorazepam (Ativan) 0 mg IVPUSH Q4H PRN; Protocol PRN Reason: Agitation Last Admin: 01/15/18 21:02 Dose: 1 mg Ondansetron HCl (Zofran) 4 mg IVPUSH Q4H PRN PRN Reason: Nausea Last Admin: 01/15/18 21:01 Dose: 4 mg Pantoprazole Sodium (Protonix) 40 mg PO DAILY [facility] Last Admin: 01/16/18 08:56 Dose: 40 mg Sodium Phosphate (Neutra-Phos) 250 mg PO QID [facility] Thiamine HCl (Vitamin B-1) 100 mg PO DAILY [facility] Last Admin: 01/16/18 08:56 Dose: 100 mg Discontinued Medications Aspirin (Aspirin) 324 mg PO ONETIME ONE Stop: 01/15/18 15:40 Last Admin: 01/15/18 15:52 Dose: 324 mg Sodium Chloride (Normal Saline) 1,000 mls @ 999 mls/hr IV .Bolus ONE Stop: 01/15/18 15:25 Last Admin: 01/15/18 14:39 Dose: 999 mls/hr Sodium Chloride (Normal Saline) 1,000 mls @ 999 mls/hr IV STAT ONE Stop: 01/15/18 15:25 Last Admin: 01/15/18 15:14 Dose: 999 mls/hr Multivitamins/Minerals 10 ml/Thiamine HCl 100 mg/ Folic Acid 1 mg/ Sodium Chloride 1,011.2 mls @ 500 mls/hr IV ONETIME ONE Stop: 01/15/18 17:40 Last Admin: 01/15/18 16:13 Dose: 500 mls/hr Ceftriaxone Sodium/Dextrose 1 (gm/ Premix) 50 mls @ 100 mls/hr IV ONETIME ONE Stop: 01/15/18 17:25 Last Admin: 01/15/18 17:21 Dose: 100 mls/hr Sodium Chloride (Sodium Chloride 0.45%) 1,000 mls @ 125 mls/hr IV ASDIRECTED [facility] Last Admin: 01/16/18 01:05 Dose: 125 mls/hr Lorazepam (Ativan) 1 mg IVPUSH ONETIME ONE Stop: 01/15/18 14:34 Last Admin: 01/15/18 17:24 Dose: Not Given Ondansetron HCl (Zofran) 4 mg IVPUSH ONETIME ONE Stop: 01/15/18 14:26 Last Admin: 01/15/18 14:38 Dose: 4 mg Potassium Chloride (Klor-Con M20) 40 meq PO ONETIME ONE Stop: 01/16/18 13:10 Last Admin: 01/16/18 14:04 Dose: 40 meq Potassium Chloride (Klor-Con M20) 40 meq PO ONETIME ONE Stop: 01/17/18 09:26
[2018-01-17] MEDS: Pantoprazole 40 MG Tab.CR PO SCH (10:29)
[2018-01-17] MEDS: Thiamine 100 MG Tab PO SCH (10:30)
[2018-01-17] MEDS: Folic Acid 1 MG Tab PO SCH (10:31)
[2018-01-17 11:23] VITALS: BP 142/85
[2018-01-17] MEDS ORDERED: Phosphorus #1 250 MG Tab PO SCH (12:00)
--- NOTE | 2018-01-19 19:17 | ECHO ---
The echocardiogram report can be seen in this patient's EMR (Electronic Medical Record) in the Reports section. The echocardiogram report has also been scanned into PACS and can be seen there as well. [id number]
== END 2018-01-17 10:55 | disposition home or self-care (01) | DRG 100 ==
LOC: MW.ED 14:23 → MW.ICU 16:56
PROVIDERS: ADMIT Internal Medicine; ATTEND Internal Medicine
DX: R56.9 Unspecified convulsions (principal); J69.0 Pneumonitis due to inhalation of food and vomit; N17.9 Acute kidney failure, unspecified; E87.0 Hyperosmolality and hypernatremia; F10.239 Alcohol dependence with withdrawal, unspecified; E86.0 Dehydration; R74.8 Abnormal levels of other serum enzymes; Z79.899 Other long term (current) drug therapy
CPT/HCPCS: 36415; 71045; 71045-26; 80048; 80053; 80305-QW; 81001; 83690; 83735; 84100; 84295; 84484; 85025; 87040; 93005; 93306; 94667; 96361; 96365; 96375; 99285-25; A9270-GY; G0480; J0456; J0696; J1644; J2060; J2405; J3411; J7030; J7040; J7050

== ENCOUNTER 2018-02-14 13:44 | Emergency (ER) | payer OTHER ==
[2018-02-14 13:51] VITALS: BP 155/98
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
== END 2018-02-14 14:32 | disposition home or self-care (01) ==
LOC: MW.ED 13:44
DX: Z13.9 Encounter for screening, unspecified (principal); F17.210 Nicotine dependence, cigarettes, uncomplicated
CPT/HCPCS: 82962; 99285

== ENCOUNTER 2019-03-31 11:20 | Emergency (ER) | payer SELFPAY ==
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
[2019-03-31 11:48] VITALS: BP 124/97; PULSE 107
== END 2019-03-31 11:48 | disposition home or self-care (01) ==
LOC: MW.ED 11:20
DX: Z13.9 Encounter for screening, unspecified (principal); F17.210 Nicotine dependence, cigarettes, uncomplicated
CPT/HCPCS: 82962; 99283

== ENCOUNTER 2019-07-28 21:12 | Emergency (ER) | payer SELFPAY ==
[2019-07-28] MEDS ORDERED: Sodium Chloride 0.9% 1,000 ML IV ONE (21:40)
[2019-07-28] MEDS ORDERED: propofoL 100 ML IV SCH (21:45)
[2019-07-28] MEDS ORDERED: fentaNYL 100 MCG/2 ML SDV ONE (21:51)
--- NOTE | 2019-07-28 21:58 | CR ---
INDICATION: Cardiopulmonary arrest, post intubation and intubation adjustment TECHNIQUE: Chest radiograph 1 view on 2 films COMPARISON: 07/28/2019 FINDINGS: Mediastinum: The mediastinum is normal in appearance. The heart silhouette is normal in size and morphology. The endotracheal tube has been advanced with the tip in the right mainstem bronchus on 9:24 p.m. radiograph and then retracted on the 9:29 p.m. image with tip 3.5 cm from the romy. Lung: The lungs remain clear with mild pulmonary vascular congestion, unchanged prior exam. No pneumothorax is identified. Bone and Soft tissue: Unremarkable for age. IMPRESSION: 1. The endotracheal tube has its tip 3.5 cm from the romy on the final image. Dictated by Sergio Perez MD @ 07/28/2019 9:54:12 PM Dictated by: Sergio Perez MD @ 07/28/2019 21:57:09 (Electronically Signed)
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
[2019-07-28 22:11] LABS: BLOOD UREA NITROGEN,BUN 15 mg/dL (7.0-18.0); CARBON DIOXIDE,CO2 11.1 mmol/L (21.0-32.0); CHLORIDE,CL 98 mmol/L (98-107); GLUCOSE RANDOM 328 mg/dL (74-106); POTASSIUM,K 5.2 mmol/L (3.5-5.1); SODIUM,NA 138 mmol/L (136-148)
[2019-07-28 22:37] VITALS: BP 218/136; PULSE 169
== END 2019-07-28 22:25 ==
LOC: MW.ED 21:34
DX: I46.9 Cardiac arrest, cause unspecified (principal); R56.9 Unspecified convulsions
CPT/HCPCS: 36415; 36600; 43752; 51702; 71045; 71045-26; 80053; 80305-QW; 81001; 82803; 83605; 84484; 85025; 86850; 86900; 86901; 92950; 93005; 99285; 99291